=== PATIENT | female | born 1955 | race African-American/Black ===

== ENCOUNTER 2017-02-21 09:59 | Emergency (ER) | payer MEDICARE, MEDICAID ==
[~2017-02-21] VITALS: Ht 154.9 cm; Wt 58.0 kg
[2017-02-21] MEDS ORDERED: ALBUTEROL (0.083%) 2.5MG/3ML NEB HHN STA (10:38)
[2017-02-21] MEDS ORDERED: ALBUTEROL (0.083%) 2.5MG/3ML NEB ONE (10:56)
[2017-02-21] MEDS ORDERED: ACETAMINOPHEN 325MG TABLET PO ONE (11:15)
[2017-02-21] MEDS ORDERED: IBUPROFEN 800MG TABLET PO ONE (12:00)
[2017-02-21] MEDS ORDERED: PREDNISONE 20MG TABLET PO ONE (12:00)
[2017-02-21 13:35] VITALS: BP 124/67
== END 2017-02-21 14:49 | disposition home or self-care (01) ==
LOC: ER 09:59
DX: B34.9 Viral infection, unspecified (principal); F43.10 Post-traumatic stress disorder, unspecified; Z88.5 Allergy status to narcotic agent
CPT/HCPCS: 71010; 94640; 99284; J7512; J7611